=== PATIENT | female | born 1950 | race Caucasian/White ===

== ENCOUNTER 2019-07-09 06:23 | Observation (INO) | payer MEDICARE, BC ==
[2019-07-07 14:33] LABS: BASOPHILS # (AUTO) 0.1 (0.0-0.1); BASOPHILS % 0.9 % (0.0-1.0); EOSINOPHILS # (AUTO) 0.2 (0.0-0.4); EOSINOPHILS % 3.3 % (0.0-6.0); HEMATOCRIT 38.7 % (34.2-44.1); LYMPHOCYTES # (AUTO) 1.7 (1.0-3.2); LYMPHOCYTES % 27.1 % (18.0-39.1); MEAN CORPUSCULAR HGB CONC 33.6 g/dL (31-35); MEAN CORPUSCULAR VOLUME 92.1 fL (81-99); MONOCYTES # (AUTO) 0.7 (0.2-0.8); MONOCYTES % 11.2 % (4.4-11.3); NEUTROPHILS # (AUTO) 3.6 (2.1-6.9); NEUTROPHILS % 56.6 % (38.7-80.0); PLATELET COUNT 311 x10e3/uL (140-360); RED CELL DISTRIBUTION WIDTH 13.1 % (11.7-14.4)
[2019-07-07 14:45] LABS: INR 0.87; PROTHROMBIN TIME 12.3 seconds (11.9-14.5)
[2019-07-07 14:46] LABS: PARTIAL THROMBOPLASTIN TIME 26.5 seconds (23.8-35.5)
--- NOTE | 2019-07-07 14:47 | Diagnostic Imaging Report ---
EXAMINATION: CHEST 2 VIEWS INDICATION: Pre-operative COMPARISON: None FINDINGS: LINES/TUBES:None LUNGS:The lungs are well-inflated. No focal consolidation or pulmonary edema. PLEURA:No pleural effusion or pneumothorax. MEDIASTINUM:The cardiomediastinal silhouette appears normal in size and shape. Atherosclerotic calcifications of the thoracic aorta. BONES/SOFT TISSUES:No acute osseous injury. ABDOMEN:No free air under the diaphragm. IMPRESSION: No focal pneumonia or pulmonary edema. Signed by: Julius Vivar MD on 07/07/2019 2:44 PM
[2019-07-07 14:52] LABS: ANION GAP 13.1 mmol/L (8-16); BLOOD UREA NITROGEN 15 mg/dL (7-26); BUN/CREATININE RATIO 18 (6-25); CALCIUM 10.6 mg/dL (8.4-10.2); CARBON DIOXIDE 28 mmol/L (22-29); CHLORIDE 101 mmol/L (98-107); CREATININE, SERUM 0.84 mg/dL (0.57-1.11); EST GLOMERULAR FILTRATION RATE > 60 ML/MIN (60-); GLUCOSE 87 mg/dL (74-118); POTASSIUM 4.1 mmol/L (3.5-5.1); SODIUM 138 mmol/L (136-145)
[~2019-07-09] VITALS: Ht 165.1 cm; Wt 95.3 kg
[~2019-07-09 06:23] MED LIST: Atorvastatin PO; GLUCOSAMINE &1 EACH PO; LOSARTAN POTASS25 MG PO; MIRAPEX0.25 MG PO; Z.0.FAMOTIDINE20 MG PO; Z.0.HYDROXYZINE HCL2 PO; Z.0.VITAMIN D50000 U PO; [UNRECOGNIZED DRUG - CODE] PO
--- OUTSIDE RECORDS SUMMARY | 2019-07-09 06:27 | XMS REPORT ---
Author Author [facility] Address Unknown Phone Unavailable Care Team Providers Care Armature Winder Repair Name Role Phone ANUPAM العلي Unavailable Unavailable Payers Payer Name Policy Type Policy Number Effective Date Expiration Date Problems This patient has no known problems. Allergies, Adverse Reactions, Alerts Allergy Name Allergy Type Status Severity Reaction(s) Onset Date Inactive Date Treating Clinician Comments Penicillins DA Active U 2017-08-30 00:00:00 Sulfa (Sulfonamide Antibiotics) DA Active U 2017-08-30 00:00:00 Medications This patient has no known medications. Results Test Description Test Time Test Comments Text Results Atomic Results Result Comments CHEST 2 VIEWS 2019-07-07 14:43:00 [place] [address] Patient Name: SONYA STARKS MR #: [id number] : 1950 Age/Sex: 69/F Req #: [id number] Adm Physician: Ordered by: ANUPAM العلي MD Report #: [id number] Location: OR Room/Bed: Procedure: [id number] DX/CHEST 2 VIEWS Exam Date: 07/07/19 Exam Time: 1429 REPORT STATUS: Signed EXAMINATION: CHEST 2 VIEWS INDICATION: Pre-operative COMPARISON: None FINDINGS: LINES/TUBES:None LUNGS:The lungs are well-inflated. No focal consolidation or pulmonary edema. PLEURA:No pleural effusion or pneumothorax. MEDIASTINUM:The cardiomediastinal silhouette appears normal in size and shape. Atherosclerotic calcifications of the thoracic aorta. BONES/SOFT TISSUES:No acute osseous injury. ABDOMEN:No free air under the diaphragm. IMPRESSION: No focal pneumonia or pulmonary edema. Signed by: Ana Laura Vviar MD on 07/07/2019 2:44 PM Dictated By: ANA LAURA VIVAR MD 1444 Transcribed By: ZACHARIAH on 07/07/19 1444 COPY TO: ANUPAM العلي MD - MRI C-SPINE W/O CONT 2019-06-26 10:30:00 [place]: St: REG Name: SONYA STARKS [facility] : 1950 Age/S: 69/F [address] [facility] Unit #: [id number] Loc: [place] [address] Phys: Balbina Pereira MD Acct: [id number] Dis Date: Status: REG CLI PHONE #: [phone] Exam Date: 06/26/2019 0940 FAX #: [phone] Reason: M54.12 EXAMS: CPT CODE: [id number] MRI C-SPINE W/O CONT 84267 HISTORY: M54.12. COMPARISON: January 31, 2019. MRI cervical spine without contrast: Note: Axial T1 weighted images and marke dly limited due to artifact. No cerebellar ectopia. No cord compression, syrinx or myelomalacia. Hemangioma of the C7 vertebral body. Bone marrow signal otherwise is within limits. No prevertebral soft tissue swelling. Disc spaces are preserved. At C2-C3 level no disc herniation, canal or foraminal stenosis is noted. At C3-C4 level central disc bulge effaces the thecal sac. No canal or foraminal stenosis. At C4-C5 level posterior central and lateral bulge. Mild effacement of the thecal sac. No canal or foraminal stenosis. Mild facet hypertrophy. At C5-C6 level 4.5 mm central and bilateral lateral disc protrusion effaces the thecal sac. No canal stenosis. No foraminal stenosis. Mild facet hypertrophy. At C6-C7 level central disc bulge effaces the thecal sac. No canal or foraminal stenosis. At C7-T1 level no disc herniation, canal or foraminal stenosis. IMPRESSION: No cord compression, syrinx or myelomalacia. 4.5 mm central and bilateral lateral disc protrusion of 4.5 mm at C5-C6 level resulting in effacement of thecal sac. Mild facet hypertrophy. No canal or foraminal stenosis. Scattered disc bulge. at 1030 Reported and signed by: Fredis Onofre M.D. PAGE 1 Signed Report (CONTINUED) [place]: B St: REG Name: RAUDELSONYA LATRICIA [facility] : 1950 Age/S: 69/F [address] [facility] Unit #: [id number] Loc: [place] [address] Phys: Balbina Pereira MD Acct: [id number] Dis Date: Status: REG CLI PHONE #: [phone] Exam Date: 06/26/2019939 FAX #: [phone] Reason: M54.12 EXAMS: CPT CODE: [id number] MRI C-SPINE W/O CONT 15558 <Continued> CC: Technologist: Martin Biggs([place])(MR) Trnscrd Date/Time/By: 06/26/2019 (1030) : By: [email or web address] Orig Print D/T: S: 06/26/2019 (1351) PAGE 2 Signed Report - MRI C-SPINE W/O CONT 2019-01-31 11:48:00 FAX: Balbina Rose [phone] [place]: St: REG Name: SONYA STARKS [facility] : 1950 Age/S: 68/F [address] [facility] Unit #: [id number] Loc: [place] [address] Phys: Balbina Pereira MD Acct: [id number] Dis Date: Status: REG CLI PHONE #: [phone] Exam Date: 01/31/2019 0841 FAX #: [phone] Reason: MUSCLE SPASM EXAMS: CPT CODE: [id number] MRI C-SPINE W/O CONT 57448 EXAM: MRI of the cervical spine without contrast; INFORMATION: Muscle spasm; TECHNIQUE AND FINDINGS: T1 and T2-weighted sequences were obtained through the cervical spine including a fat-suppressed study. There is good alignment of the cervical spine. Vertebral bodies, the dens and posterior elements are intact; no evidence of fracture or dislocation. Normal bone marrow signal of the cervical vertebrae. Normal height of intervertebral discs. No significant disc protrusions. IMPRESSION: Unremarkable MRI scan of the cervical spine. at 8947 Reported and signed by: Caleb Cobb M.D. CC: Balbina Pereira MD Technologist: Martin Chavira)(MR) Trnscrd Date/Time/By: 01/31/2019 (6348) : By: [email or web address] Orig Print D/T: S: 01/31/2019 (7097) PAGE 1 Signed Report
[2019-07-09] MEDS ORDERED: THROMBIN FOR SOLN 5,000 UNIT VIAL ONE (06:28)
[2019-07-09] MEDS ORDERED: BACITRACIN 50,000 UNIT VIAL ONE (06:28)
[2019-07-09] MEDS ORDERED: BUPIVACAINE 0.5%/EPI 30 ML SDV INJ ONE (06:28)
[2019-07-09] MEDS ORDERED: VANCOMYCIN 1GM/NS 250 ML 250 ML ONE (06:46)
[2019-07-09] MEDS ORDERED: ACETAMINOPHEN 1000 MG/100 ML 100 ML IV ONE (07:18)
[2019-07-09] MEDS ORDERED: LIDOCAINE HCL (LTA) 4 ML SOLN ONE (07:19)
[2019-07-09] MEDS ORDERED: IBUPROFEN 800MG/ 250ML 250 ML IV ONE (07:19)
--- NOTE | 2019-07-09 09:04 | NUR ---
SPIRITUAL CARE - Pre-Surgery Assessment: Pt in bed. Pt's spouse at bedside. Pt reported supportive attention from family and friends. Intervention: I provided pastoral presence, hospitality, and sympathetic listening. I acquainted pt with availability of web content manager while hospitalized. Outcome: Pt expressed appreciation for visit. No need for follow up indicated at this time. NABEEL Silvermanlain Spiritual Care Department O: [phone] Pager: [phone] ([phone] number calling from)
[2019-07-09] MEDS: LACTATED RINGER'S 1,000 ML IV SCH ×2 (10:08→20:19)
[2019-07-09] MEDS ORDERED: ONDANSETRON HCL INJ 2MG/ML 2ML 2 MG/ML VIAL IV PRN (10:15)
[2019-07-09] MEDS ORDERED: HYDROMORPHONE 2MG/ML 2 MG/ML ML IV PRN (10:15)
[2019-07-09] MEDS ORDERED: CARISOPRODOL 350 MG TAB PO PRN (10:15)
[2019-07-09] MEDS ORDERED: MORPHINE SULFATE INJ 4 MG/ML INJ 1ML IM PRN (10:15)
[2019-07-09] MEDS ORDERED: PROMETHAZINE HCL (IM) 25 MG/ML VIAL IM PRN (10:15)
[2019-07-09] MEDS ORDERED: CEPACOL SORE THROAT LOZENGES PO PRN (10:15)
[2019-07-09] MEDS ORDERED: MAGNESIUM/ALUMINUM/SIMETHICONE 30 ML UDC PO PRN (10:15)
[2019-07-09] MEDS ORDERED: ACETAMINOPHEN 325 MG TAB PO PRN (10:15)
[2019-07-09] MEDS ORDERED: ZOLPIDEM TARTRATE 5 MG TAB PO PRN (10:15)
[2019-07-09] MEDS ORDERED: FENTANYL CITRATE/PF 100MCG/2 ML INJ ONE ×2 (11:54→19:08)
[2019-07-09 13:20] VITALS: BP 161/74
--- NOTE | 2019-07-09 13:20 | NUR ---
RECEIVED PT TO FLOOR AA0X3 PT HAS RIGHT SIDE ANTERIOR DRESSING THAT IS DRY AND INTACT. WITH SOFT COLLAR TO SECURE NECK. HEMOVAC PRESENT, SUCTIONED APPROPRIATE AND SECURED TO PT BLOUSE. PT HAS A RIGHT FA 20 WITH LF AT 120CC.HR SITE IS CLEAN AND DRY WILL CONTINUE TO MONITOR PT CLOSELY PT HAS VOIDED INTO TOILET POST VOID WILL CONTINUE TO MONITOR PT CLOSELY, SIDE RAILSX2 ,BED WHEELS LOCKED, CALL LIGHT IS WITHIN EASY REACH, INSTRUCTED TO CALL FOR ASSISTANCE NEEDED
--- NOTE | 2019-07-09 14:54 | Operative Report ---
DATE OF PROCEDURE: 07/09/2019 SURGEON: Haseeb Guo MD PREOPERATIVE DIAGNOSIS: C5-6 spondylosis with radiculopathy, M50.122. POSTOPERATIVE DIAGNOSIS: C5-6 spondylosis with radiculopathy, M50.122. PROCEDURES PERFORMED: 1. C5-6 anterior cervical diskectomy and microsurgical osteophyte resection and allograft fusion, 38110. 2. Preparation of MTF corticocancellous allograft, 74387. 3. C5-6 anterior cervical plating with Synthes DPM plate, 67592. ANESTHESIA: General. INDICATIONS: The patient is a woman, who presents with C5-6 spondylosis and central and bilateral foraminal stenosis and was taken to the operating room for C5-6 anterior cervical decompression and fusion. PROCEDURE IN DETAIL: After induction of anesthesia, the patient was placed on the operating table in the supine position. The right side of the neck was prepped and draped in sterile fashion. The fluoroscopic C-arm was positioned in cross-table lateral orientation. A transverse incision was created on the right side of neck superimposed on the C5-6 disk space as determined by fluoroscopy. The platysma was divided in line with the incision. A subplatysmal dissection was carried out and avascular plane of dissection was developed medially. Sternocleidomastoid muscle was followed medial to the carotid sheath to the anterior border of the cervical spine. The deep cervical fascia was opened. The esophagus was retracted to the left. The attachments of longus colli muscles to the anterolateral aspects of vertebral bodies of C5 and C6 were divided. The anterior longitudinal ligament was resected. [place] posts were inserted in C5 and C6, and a [place] distractor was used to distract the disk space. The anterior annulus of this was incised with a #11 blade and the contents of the C5-6 disk were thoroughly evacuated with angled curettes and pituitary rongeurs. The posterior osteophytes were meticulously drilled with a 2 mm cutting bur on a high-speed drill, which was then completely removed. The posterior annulus of the disk, herniated disk material, and the posterior longitudinal ligament were resected layer by layer until the dura was fully exposed and decompressed. The medial aspects of the hypertrophic uncinate processes were resected bilaterally to further expose any compressed origins of the corresponding C6 nerve roots. After satisfactory decompression had been achieved, the endplates were prepared for fusion. The disk space was sized and found to be 7 mm in height. A piece of MTF corticocancellous allograft measuring 7 mm in thickness was selected and loaded onto the corresponding Synthes ZPN plate. The construct was inserted into the C5-6 disk space under distraction and fluoroscopic guidance. The distraction was released and distraction posts were removed. The plate was screwed to the endplates of C5 and C6 with two pairs of 14 mm screws. All screws were locked and excellent construct was obtained. The wound was copiously irrigated with bacitracin solution. Meticulous hemostasis was secured. A small Hemovac drain was placed over the plate and brought out through a separate stab incision. The platysma was closed with 3-0 Vicryl sutures. The skin was closed with 4-0 Monocryl sutures in subcuticular fashion. Steri-Strips and sterile dressings were applied. The patient was awakened, extubated, and taken to postanesthesia care unit in stable condition. COMPLICATIONS: No intraoperative complications were encountered. ESTIMATED BLOOD LOSS: 20 mL. Haseeb Guo MD PP/SAVANA /[id number]
[2019-07-09 16:04] VITALS: BP 137/69
[2019-07-09] MEDS ORDERED: NEOSTIGMINE 5 MG/5ML SYR ONE (18:48)
[2019-07-09] MEDS ORDERED: PROPOFOL IV EMULSION 10 MG/ML 20 ML VIAL ONE (18:48)
[2019-07-09] MEDS ORDERED: DEXAMETHASONE SOD PHOS INJ 4 MG/ML VIAL ONE (18:48)
[2019-07-09] MEDS ORDERED: LIDOCAINE HCL 2% LOCAL INJ 5 ML SDV VIAL INJ ONE (18:48)
[2019-07-09] MEDS ORDERED: ONDANSETRON HCL INJ 2MG/ML 2ML 2 MG/ML VIAL ONE (18:48)
[2019-07-09] MEDS ORDERED: SEVOFLURANE INHAL SOLN 250 ML PEN BTL ONE (18:48)
[2019-07-09] MEDS ORDERED: ROCURONIUM BROMIDE 10 MG/ML 5ML VIAL ONE (18:48)
[2019-07-09] MEDS ORDERED: LIDOCAINE HCL 2% JELLY 5 ML TUBE ONE (18:48)
[2019-07-09] MEDS ORDERED: GLYCOPYRROLATE INJ 1MG/ 5 ML SYR ONE (18:48)
[2019-07-09] MEDS ORDERED: MIDAZOLAM HCL 2 MG/2 ML VIAL ONE (19:08)
[2019-07-09 19:59] VITALS: BP 112/54
[2019-07-09] MEDS: VANCOMYCIN 1GM/NS 250 ML 250 ML IV SCH (20:19)
[2019-07-09] MEDS: OXYCODONE/ACETAMINOPHEN 5-325 1 EACH TABLET PO PRN (20:19)
[2019-07-09] MEDS ORDERED: LOSARTAN POTASSIUM 25 MG TAB PO SCH (21:00)
[2019-07-09] MEDS ORDERED: PRAMIPEXOLE DIHYDROCHLORIDE 0.25 MG TAB PO SCH (21:00)
[2019-07-09 22:13] VITALS: BP 112/54
[2019-07-10 00:22] VITALS: BP 109/52
[2019-07-10] MEDS: LACTATED RINGER'S 1,000 ML IV SCH ×2 (02:48→11:08)
[2019-07-10] MEDS: OXYCODONE/ACETAMINOPHEN 5-325 1 EACH TABLET PO PRN ×2 (04:32→11:24)
[2019-07-10 04:55] VITALS: BP 133/60
[2019-07-10] MEDS ORDERED: LEVOTHYROXINE SODIUM 75 MCG TAB PO SCH (06:00)
--- NOTE | 2019-07-10 07:11 | Diagnostic Imaging Report ---
Cervical Spine, 4 views HISTORY: Pain COMPARISON: None. FINDINGS: Limited sensitivity for detection of subtle fractures and ligamentous abnormalities. On the lateral view, the cervical spine is visualized from the skull base to C5. The alignment is normal. No acute displaced fracture involving the visualized cervical spine. Status post anterior fusion of the C5-C6. Intact hardware. Mild anterior prevertebral soft tissue swelling with surgical drain in place. IMPRESSION: Postsurgical changes of anterior C5-C6 fusion. Signed by: Dr. Jesse Covarrubias MD on 07/10/2019 7:08 AM
[2019-07-10 07:45] VITALS: BP 145/65
--- NOTE | 2019-07-10 07:48 | NUR ---
Patient a/ox3, pleasant and no distress at this time, rounds completed, call light within reach, bed in low locked position, will monitor.
[2019-07-10] MEDS: VANCOMYCIN 1GM/NS 250 ML 250 ML IV SCH (08:24)
--- NOTE | 2019-07-10 08:54 | NUR ---
GALDAMEZ EXPLAINED TO PT, SIGNED BY PT AND PLACED ON CHART COPY OF GALDAMEZ PLACED IN PT'S CARE TRANSITION FOLDER
[2019-07-10] MEDS ORDERED: ATORVASTATIN 10 MG TAB PO SCH (09:00)
[2019-07-10 09:43] VITALS: BP 145/65
[2019-07-10] MEDS ORDERED: NORCO 7.5-3251 EACH PO (11:06)
[2019-07-10 12:07] VITALS: BP 133/61
[2019-07-10] MEDS ORDERED: ONDANSETRON HCL 4 MG ORAL DISINTEGRATING TAB PO PRN (12:15)
--- NOTE | 2019-07-10 13:15 | NUR ---
Patient a/ox3, removed hemovac to neck and no bleeding, steri strips in place, pains well controlled, no distress. Provided with discharge instructions and to call and schedule f/u appt as instructed. Maintain cervical collar in place as per instructions. IV line removed with cath tip in place, dressing applied, prescriptions provided to patient.
== END 2019-07-10 13:45 | disposition home or self-care (01) ==
LOC: OR 06:23 → PACU V 10:10 → MED/SURG 13:18
PROVIDERS: ADMIT Neurological Surgery; ATTEND Neurological Surgery
DX: M50.022 Cervical disc disorder at C5-C6 level with myelopathy (principal); M47.22 Other spondylosis with radiculopathy, cervical region; Z88.0 Allergy status to penicillin; Z88.2 Allergy status to sulfonamides; Z01.810 Encounter for preprocedural cardiovascular examination; Z01.812 Encounter for preprocedural laboratory examination; Z01.811 Encounter for preprocedural respiratory examination; M19.90 Unspecified osteoarthritis, unspecified site; I10 Essential (primary) hypertension; E78.00 Pure hypercholesterolemia, unspecified; M81.0 Age-related osteoporosis without current pathological fracture; E03.9 Hypothyroidism, unspecified; Z80.9 Family history of malignant neoplasm, unspecified; Z83.3 Family history of diabetes mellitus; R05 Cough
CPT/HCPCS: 20931; 22551; 22845; 36415; 71046; 72040; 80048; 85025; 85610; 85730; 86850; 86900; 88304; 89060; 93005; C1713 ×2; G0378 ×2; J0131; J1100; J2001 ×2; J2250; J2405; J2704; J3010; J3370 ×2; J3490; J7121; 77003

== ENCOUNTER 2023-04-11 07:42 | Observation (INO) | payer MEDICARE, BC ==
[2023-04-10 10:29] LABS: BASOPHILS # (AUTO) 0.1 (0.0-0.1); BASOPHILS % 1.3 % (0.0-1.0); EOSINOPHILS # (AUTO) 0.2 (0.0-0.4); EOSINOPHILS % 4.1 % (0.0-6.0); HEMATOCRIT 36.8 % (34.2-44.1); HEMOGLOBIN 12.3 g/dL (12.0-16.0); LYMPHOCYTES # (AUTO) 1.4 (1.0-3.2); LYMPHOCYTES % 26.2 % (18.0-39.1); MEAN CORPUSCULAR HEMOGLOBIN 30.4 pg (28-32); MEAN CORPUSCULAR HGB CONC 33.4 g/dL (31-35); MEAN CORPUSCULAR VOLUME 90.9 fL (81-99); MONOCYTES # (AUTO) 0.7 (0.2-0.8); MONOCYTES % 12.5 % (4.4-11.3); NEUTROPHILS % 55.3 % (38.7-80.0); PLATELET COUNT 293 x10e3/uL (140-360); RED BLOOD COUNT 4.05 x10e6/uL (3.6-5.1); RED CELL DISTRIBUTION WIDTH 12.8 % (11.7-14.4)
[2023-04-10 10:42] LABS: INR 0.88; PARTIAL THROMBOPLASTIN TIME 26.1 seconds (23.8-35.5); PROTHROMBIN TIME 12.4 seconds (11.9-14.5)
[2023-04-10 10:50] LABS: ANION GAP 15.9 mmol/L (8-16); CALCIUM 8.9 mg/dL (8.4-10.2); CREATININE, SERUM 0.89 mg/dL (0.57-1.11); POTASSIUM 3.9 mmol/L (3.5-5.1)
[~2023-04-11] VITALS: Ht 162.6 cm; Wt 94.8 kg
[~2023-04-11 07:42] MED LIST changes: +ACETAMINOPHEN 1000 MG/100 ML 100 ML IV ONE; +LIPITOR10 MG PO; +LOSARTAN-HCTZ1 EAC1 PO; +NORCO 7.5-3251 EACH PO; +QUETIAPINE FUMA25 MG PO; +SUGAMMADEX SODIUM 200 MG/2 ML VIAL IV ONE
[2023-04-11] MEDS ORDERED: VANCOMYCIN 1.5 GM/300 ML IV ONE (09:00)
[2023-04-11] MEDS ORDERED: PIGGYBACK IV ONE (09:00)
[2023-04-11] MEDS ORDERED: LACTATED RINGER'S 1,000 ML ONE (09:21)
[2023-04-11] MEDS ORDERED: HYDROCODON-ACE1 EA12 PO (11:59)
[2023-04-11] MEDS ORDERED: ONDANSETRON HCL INJ 2MG/ML 2ML 2 MG/ML VIAL IV PRN (12:00)
[2023-04-11] MEDS ORDERED: MORPHINE SULFATE 5 MG/ML VIAL IM PRN (12:00)
[2023-04-11] MEDS ORDERED: ACETAMINOPHEN 325 MG TAB PO PRN (12:00)
[2023-04-11] MEDS ORDERED: PROMETHAZINE HCL (IM) 25 MG/ML VIAL IM PRN (12:00)
[2023-04-11] MEDS ORDERED: ZOLPIDEM TARTRATE 5 MG TAB PO PRN (12:00)
[2023-04-11] MEDS ORDERED: MAGNESIUM/ALUMINUM/SIMETHICONE 30 ML UDC PO PRN (12:00)
[2023-04-11] MEDS ORDERED: CEPACOL SORE THROAT LOZENGES PO PRN (12:00)
[2023-04-11] MEDS ORDERED: CARISOPRODOL 350 MG TAB PO PRN (12:00)
[2023-04-11] MEDS: LACTATED RINGER'S 1,000 ML IV SCH ×2 (12:00→20:20)
[2023-04-11] MEDS ORDERED: HYDROMORPHONE 2MG/ML 2 MG/ML ML IV PRN (12:00)
[2023-04-11] MEDS ORDERED: OXYCODONE/ACETAMINOPHEN 5-325 1 EACH TABLET ONE (12:50)
[2023-04-11] MEDS ORDERED: CARISOPRODOL 350 MG TAB ONE (12:51)
[2023-04-11] MEDS ORDERED: FENTANYL CITRATE/PF 100MCG/2 ML INJ ONE (13:16)
[2023-04-11] MEDS ORDERED: DEXAMETHASONE SOD PHOS INJ 4 MG/ML SDV ONE (13:39)
[2023-04-11] MEDS ORDERED: LIDOCAINE HCL 2% LOCAL INJ 5 ML SDV VIAL INJ ONE (13:39)
[2023-04-11] MEDS ORDERED: ONDANSETRON HCL INJ 2MG/ML 2ML 2 MG/ML VIAL ONE (13:39)
[2023-04-11] MEDS ORDERED: PROPOFOL IV EMULSION 10 MG/ML 20 ML VIAL ONE (13:39)
[2023-04-11] MEDS ORDERED: ROCURONIUM BROMIDE 10 MG/ML 5ML VIAL IV ONE (13:39)
[2023-04-11] MEDS ORDERED: KETOROLAC TROMETHAMINE 30 MG/ML VIAL ONE (13:39)
[2023-04-11] MEDS ORDERED: POVIDONE IODINE 0.05% 0.05 % ML PO ONE (13:39)
[2023-04-11] MEDS ORDERED: SEVOFLURANE INHAL SOLN 250 ML PEN BTL ONE (13:39)
[2023-04-11 15:18] VITALS: BP 122/59; PULSE 76; RESP 18; TEMP 97.8; O2SAT 98
[2023-04-11 15:25] VITALS: BP 122/59; PULSE 76; RESP 18; TEMP 97.8; O2SAT 98
[2023-04-11 17:03] VITALS: BP 136/67; PULSE 78; RESP 16; TEMP 97.4; O2SAT 100
[2023-04-11] MEDS: OXYCODONE/ACETAMINOPHEN 5-325 1 EACH TABLET PO PRN (19:14)
[2023-04-11 20:00] VITALS: BP 131/55; PULSE 84; RESP 16; TEMP 97; O2SAT 97
[2023-04-11] MEDS ORDERED: ATORVASTATIN 10 MG TAB PO SCH (21:00)
[2023-04-11] MEDS ORDERED: QUETIAPINE FUMARATE 25 MG TAB PO SCH (21:00)
[2023-04-12 01:04] VITALS: BP 122/65; PULSE 77; RESP 18; TEMP 97.1; O2SAT 98
[2023-04-12] MEDS: LACTATED RINGER'S 1,000 ML IV SCH (04:40)
[2023-04-12 05:16] VITALS: BP 118/57; PULSE 76; RESP 16; TEMP 97.3; O2SAT 97
[2023-04-12] MEDS ORDERED: LEVOTHYROXINE SODIUM 100 MCG TAB PO SCH (06:00)
[2023-04-12] MEDS: OXYCODONE/ACETAMINOPHEN 5-325 1 EACH TABLET PO PRN (06:28)
[2023-04-12 08:00] VITALS: BP 127/55; PULSE 67; RESP 19; TEMP 97.4; O2SAT 100
[2023-04-12 08:56] VITALS: BP 127/55; PULSE 67; RESP 19; TEMP 97.4; O2SAT 100
[2023-04-12] MEDS ORDERED: LOSARTAN POTASSIUM 100 MG TAB PO SCH (09:00)
[2023-04-12] MEDS ORDERED: NON-FORMULARY MEDICATION (Losartan/Hydrochlorothiazide (Losartan-Hctz 100-25 Mg Tab) 1 TAB PO SCH (09:00)
[2023-04-12] MEDS ORDERED: HYDROCHLOROTHIAZIDE 25 MG TAB PO SCH (09:00)
[2023-04-12] MEDS ORDERED: LEVOTHYROXINE SODIUM 100 MCG PO SCH (09:00)
== END 2023-04-12 09:17 | disposition home or self-care (01) ==
LOC: OR 07:42 → PACU V 11:56 → MED/SURG 14:41
PROVIDERS: ADMIT Neurological Surgery; ATTEND Neurological Surgery
DX: M48.062 Spinal stenosis, lumbar region with neurogenic claudication (principal); M81.0 Age-related osteoporosis without current pathological fracture; I10 Essential (primary) hypertension; E78.5 Hyperlipidemia, unspecified; E03.9 Hypothyroidism, unspecified; J44.9 Chronic obstructive pulmonary disease, unspecified; H91.90 Unspecified hearing loss, unspecified ear; Z71.82 Exercise counseling; Z71.3 Dietary counseling and surveillance; Z88.0 Allergy status to penicillin; Z88.2 Allergy status to sulfonamides; Z01.810 Encounter for preprocedural cardiovascular examination; Z01.812 Encounter for preprocedural laboratory examination; Z01.818 Encounter for other preprocedural examination; Z79.899 Other long term (current) drug therapy; Z68.36 Body mass index [BMI] 36.0-36.9, adult
CPT/HCPCS: 36415; 63047; 63048; 71046; 72020; 80048; 85025; 85610; 85730; 86850; 86900; 88304; 88311; 93005; G0378 ×2; J0131; J0690 ×2; J1100; J1885; J2001; J2405; J2704; J3010; J7121